=== PATIENT | male | born 1995 | race Caucasian/White ===

== ENCOUNTER 2018-03-27 17:22 | Emergency (ER) | payer SELFPAY ==
[~2018-03-27] VITALS: Ht 175.3 cm; Wt 89.8 kg
[2018-03-27 17:31] VITALS: BP 139/76
--- NOTE | 2018-03-27 18:37 | NUR ---
PT AMBULATES TO BED 9
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
--- NOTE | 2018-03-27 18:55 | NUR ---
AWAITING FOR DISPOSITION
--- NOTE | 2018-03-27 19:15 | NUR ---
PT LAYING IN BED, AWAKE, WILL CONTINUE TO MONITOR.
--- NOTE | 2018-03-27 20:30 | NUR ---
Dr. Larry evaluating patient at bedside.
[2018-03-27] MEDS ORDERED: LIDOCAINE MPF 1% 5mL VIAL INJ ONE (21:40)
[2018-03-27] MEDS ORDERED: NEOMYCIN/POLYMYXIN/BACITRACIN 0.9 GM/1 PKT TP ONE (21:40)
--- NOTE | 2018-03-27 22:00 | NUR ---
PT LAYING IN BED, AWAKE, WILL CONTINUE TO MONITOR.
--- NOTE | 2018-03-27 22:08 | NUR ---
Dr. Larry re-evaluating patient at bedside.
--- NOTE | 2018-03-27 22:10 | NUR ---
NO MEDICATIONS GIVEN, NO PROCEDURE DONE.
--- NOTE | 2018-03-27 22:28 | NUR ---
PENDING D/C PAPERWORK FROM DR TRISTAN.
[2018-03-27 22:40] VITALS: BP 130/75
--- NOTE | 2018-03-27 22:40 | NUR ---
Patient discharged with v/s stable. Written and verbal after care instructions given and explained. Patient alert, oriented and verbalized understanding of instructions. Ambulatory with steady gait. All questions addressed prior to discharge. ID band removed. Patient advised to follow up with PMD. Rx of KEFLEX, IBUPROFEN given. Patient educated on indication of medication including possible reaction and side effects. Opportunity to ask questions provided and answered.
== END 2018-03-27 22:40 | disposition home or self-care (01) ==
LOC: MED 17:22
DX: S60.221A Contusion of right hand, initial encounter (principal); S60.551A Superficial foreign body of right hand, initial encounter; X58.XXXA Exposure to other specified factors, initial encounter; Y93.89 Activity, other specified; Y92.89 Other specified places as the place of occurrence of the external cause; Y99.8 Other external cause status
CPT/HCPCS: 73130; 99284; J2001